=== PATIENT | female | born 1940 | race Caucasian/White ===

== ENCOUNTER 2022-03-01 10:51 | Emergency (ER) | payer MEDICARE, OTHER ==
[~2022-03-01] VITALS: Ht 157.5 cm; Wt 46.7 kg
[2022-03-01] MEDS ORDERED: cloNIDine HCL 0.1 MG TAB PO ONE (11:15)
[2022-03-01 12:13] LABS: Urine Amorphous Crystal FEW /hpf (None Seen); Urine Bacteria NONE SEEN /hpf (None Seen); Urine Blood Negative /uL (Negative); Urine Specific Gravity 1.006 (1.001-1.035); Urine WBC <1 /hpf (0 - 5)
[2022-03-01] MEDS ORDERED: traMADol HCL 50 MG TAB PO ONE (12:30)
[2022-03-01] MEDS ORDERED: TRAM-297 PO (12:51)
[2022-03-01 13:21] VITALS: BP 120/67
== END 2022-03-01 13:23 | disposition home or self-care (01) ==
LOC: ER 10:51
DX: M79.10 Myalgia, unspecified site (principal); I16.0 Hypertensive urgency; Z90.49 Acquired absence of other specified parts of digestive tract; Z90.710 Acquired absence of both cervix and uterus; Z90.89 Acquired absence of other organs; Z88.0 Allergy status to penicillin; Z88.1 Allergy status to other antibiotic agents; Z88.8 Allergy status to other drugs, medicaments and biological substances
CPT/HCPCS: 74176; 81001; 93005